=== PATIENT | female | born 1990 | race Two or more races ===

== ENCOUNTER 2021-01-01 14:45 | Inpatient (IN) | payer OTHER ==
[~2021-01-01] VITALS: Ht 170.2 cm; Wt 86.2 kg
== END 2021-01-19 11:57 | disposition home or self-care (01) | DRG 788 ==
LOC: LDR 01-16 06:47 → O/R 01-16 21:10 → SURG-SUITE 01-17 13:08 → LDR 01-21 14:45
PROVIDERS: ADMIT Obstetrics & Gynecology; ATTEND Obstetrics & Gynecology
PROC: 4A1HXFZ Monitoring of Products of Conception, Cardiac Rhythm, External Approach (ICD-10-PCS; 2021-01-16)
PROC: 10D00Z1 Extraction of Products of Conception, Low, Open Approach (ICD-10-PCS; principal; 2021-01-16 18:00)
DX: O62.1 Secondary uterine inertia (principal); Z37.0 Single live birth; Z3A.39 39 weeks gestation of pregnancy; Z20.822 Contact with and (suspected) exposure to COVID-19